=== PATIENT | female | born 1990 | race Caucasian/White ===

== ENCOUNTER 2020-08-27 12:36 | Emergency (ER) | payer BC, OTHER ==
[~2020-08-27] VITALS: Ht 162.6 cm; Wt 69.5 kg
--- NOTE | 2020-08-27 14:29 | RAD ---
VENOUS UPPER EXTREMITY RIGHT History: Reason: forearm swelling x 2 weeks hx of factor 5 Comparison: None. Procedure: Color flow Doppler, Doppler spectral analysis, and 2D images are obtained with and without compression in the jugular vein, subclavian vein, axillary vein, brachial vein, radial vein, ulnar vein, and basilic and cephalic veins. Findings: There is normal color flow, augmentation, and compressibility of all visualized vein segments. No evidence of deep venous thrombus is present. Cephalic vein difficult to follow due to small size. No evidence of superficial vein thrombosis. IMPRESSION: 1. No evidence of right upper extremity deep venous thrombosis. Electronically signed by: Rodriguez Henry DO (08/27/2020 2:26 PM) [id number]
[2020-08-27] MEDS ORDERED: NAPR-695 PO (15:02)
--- NOTE | 2020-08-27 15:02 | PHYS DOC ---
Past Medical History Past Medical History: Other Additional Past Medical Histor: ADHD, Facor V Past Surgical History: Other Additional Past Surgical Histo: knee surgery Smoking Status: Current Every Day Smoker Additional Information: 0.5/ppd Alcohol Use: Occasionally General Adult EDM: Chief Complaint: UPPER EXTREMITY PAIN HPI: HPI: Patient is a 29 year old female, accompanied by her sister, who presents to the emergency department with complaints of swelling and pain in her right wrist and forearm for the last 2-3 weeks. She denies any recent injury. She states that she was seen in urgent care 2 weeks ago and was given a shot of steroids and put in a brace, states that the symptoms continue. She denies any redness, warmth, or drainage from the affected extremity. She denies any known injury. Reports a history of factor V Leiden but denies any history of blood clots. She reports that her fingers have had a tingling sensation that has been intermittent and at times her right hand feels cold. She states that her pain has continued to increase even after taking the steroid shot that was given 2 weeks ago. She currently rates pain 9 out of 10 on the pain scale, she denies any alleviating factors, the pain is worse with movement. Review of Systems: Review of Systems: Constitutional: Denies fever or chills. [] Musculoskeletal: See HPI Integument: Denies rash, see HPI. [] Neurologic: Denies headache, see HPI Heart Score: Risk Factors: Risk Factors: DM, Current or recent (<one month) smoker, HTN, HLP, family history of CAD, obesity. Risk Scores: Score 0 - 3: 2.5% MACE over next 6 weeks - Discharge Home Score 4 - 6: 20.3% MACE over next 6 weeks - Admit for Clinical Observation Score 7 - 10: 72.7% MACE over next 6 weeks - Early Invasive Strategies Physical Exam: PE: Constitutional: Well developed, well nourished, no acute distress, non-toxic appearance. [] HENT: Normocephalic, atraumatic, bilateral external ears normal, nose normal. [] Eyes: PERRLA, EOMI, conjunctiva normal, no discharge. [] Neck: Normal range of motion, no stridor. [] Cardiovascular:Heart rate regular rhythm Lungs & Thorax: Respirations even and unlabored, no retractions, no respiratory distress Skin: Warm, dry, no erythema, no rash. [] Extremities: RUE: 1+ edema to R forearm, no erythema or warmth, no obvious deformtiy, no tenderness, no cyanosis, ROM intact Neurologic: Alert and oriented X 3, no focal deficits noted. [] Psychologic: Affect normal, judgement normal, mood normal. [] Current Patient Data: Vital Signs: Vital Signs Date Time Temp Pulse Resp B/P (MAP) Pulse Ox O2 Delivery O2 Flow Rate FiO2 08/27/20 12:45 98.1 61 19 126/77 (93) 99 Room Air 98.1 EKG: EKG: [] Radiology/Procedures: Radiology/Procedures: PROCEDURE: VENOUS UPPER EXTREMITY RIGHT VENOUS UPPER EXTREMITY RIGHT History: Reason: forearm swelling x 2 weeks hx of factor 5 Comparison: None. Procedure: Color flow Doppler, Doppler spectral analysis, and 2D images are obtained with and without compression in the jugular vein, subclavian vein, axillary vein, brachial vein, radial vein, ulnar vein, and basilic and cephalic veins. Findings: There is normal color flow, augmentation, and compressibility of all visualized vein segments. No evidence of deep venous thrombus is present. Cephalic vein difficult to follow due to small size. No evidence of superficial vein thrombosis. IMPRESSION: 1. No evidence of right upper extremity deep venous thrombosis. [] Course & Med Decision Making: Course & Med Decision Making Pertinent Labs and Imaging studies reviewed. (See chart for details) [] Dragon Disclaimer: Dragon Disclaimer: This electronic medical record was generated, in whole or in part, using a voice recognition dictation system. Departure Departure Impression: Primary Impression: Pain and swelling of right forearm Disposition: 01 HOME, SELF-CARE Condition: STABLE Referrals: VANIA MICHAUD MD (PCP) SHAE ULLOA II, MD Patient Instructions: Carpal Tunnel Syndrome, [id number] Additional Instructions: Fill the prescription and take as directed with food. Stop taking ibuprofen. Wear splint/compression sleeve as discussed. Follow up with Dr. Ulloa this week. Return to the ER if symptoms worsen. Scripts Naproxen (NAPROXEN) 375 Mg Tablet 1 TAB PO BID for 10 Days, #20 TAB 0 Refills Prov: YASMEEN CABRALES APRN 08/27/20 YASMEEN CABRALES APRN Aug 27, 2020 15:02
[2020-08-27 15:20] VITALS: BP 122/70
== END 2020-08-27 15:20 | disposition home or self-care (01) ==
LOC: ER 12:36
DX: M79.631 Pain in right forearm (principal); R60.0 Localized edema; R20.2 Paresthesia of skin; F17.200 Nicotine dependence, unspecified, uncomplicated; F90.9 Attention-deficit hyperactivity disorder, unspecified type; Z98.890 Other specified postprocedural states
CPT/HCPCS: 93971; 99284

== ENCOUNTER → 2020-11-21 | Outpatient (CLI) | payer OTHER ==
[~2020-11-21] MED LIST: AMIT10TA PO; DEXT10TA23 PO; GABA-585 PO; NAPR-695 PO
--- NOTE | 2020-11-21 09:21 | PDOC1 ---
INITIAL PAIN CONSULT DATE OF SERVICE: DOS: DATE: 11/21/20 TIME: 09:13 CHIEF COMPLAINT: Chief Complaint: Neck and right upper extremity pain HISTORY OF PRESENT ILLNESS: 30-year-old female presents history of pain base the neck and right upper extremity for several years but much worse over the past 6 months without any specific injury or accident that she is aware but getting worse over time with pain rating from the base of the neck into the right upper extremity posterior deltoid anterior deltoid biceps and triceps as well as forearm and into the hand with numbness and tingling in the fingers mostly the thumb and first finger patient reports is becoming more constant with time worse with activity reaching repetitive motions light weight lifting with the right arm also some numbness and radiation into the right upper extremity and hand as noted. Patient has been taking amitriptyline which does decrease the pain and helps her sleep the gabapentin was tried but was not helpful she has had no formal physical therapies but has had occupational therapy on the right upper extremity is doing stretching strength exercises that was outlined for her in that therapy. P atient reports it wakes her from sleep release 2-3 times at night specially she lays on her right side does not affect her bowel bladder control or ability to walk or function but she is still working and using upper extremities repetitively which exacerbates the pain. Patient had MRI scan of the cervical spine showing only some minimal narrowing at the C6-7 and C7-T1 without evidence of focal disc protrusion no signs of central canal or foraminal stenosis throughout. Patient rates her disability rating 0-10 10 being the worst as a 0 family responsibilities social activity sexual behavior self-care and life support activities of 5 with recreation and 3 with occupational activities. PAST MEDICAL HISTORY: PMH: Factor V disorder, cigarette smoking quit 6 months ago PREVIOUS SURGERIES: Past Surgical Hx: Right knee surgery 2009 CURRENT MEDICATIONS: Current Meds: Active Scripts Medications Dose Route/Sig Max Daily Dose Days Date Category Gabapentin (Gabapentin) 100 Mg Capsule 200 Mg PO BID 11/21/20 Reported Amitriptyline Hcl 10 Mg Tablet 1 Tab PO QHS 11/21/20 Reported Adderall 10 Mg Tablet (Dextroamphetamine/Amphetamine) 10 Mg Tablet 10 Mg PO HS 11/21/20 Reported Adderall 10 Mg Tablet (Dextroamphetamine/Amphetamine) 10 Mg Tablet 2 Tab PO DAILY MDD 1 Tablet(s) 5 11/21/20 Reported ALLERGIES; Allergies: Coded Allergies: Sulfa (Sulfonamide Antibiotics) (Verified Allergy, rash, 11/21/20) FAMILY HISTORY: Family Hx: Diabetes, heart disease, factor V Leiden SOCIAL HISTORY: Social Hx: Patient does not julio alcohol quit smoking 6 months ago is single lives with her boyfriend and her 10-year-old son lives locally in [facility] 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 Extraocular movements are intact and sy mmetrical. Oral cavity: Mucous membranes moist and pink. Dentition is intact. NECK: Shows anterior throat supple without palpable lymphadenopathy noted. Swallow reflex symmetrical. CHEST: Shows normal on inspection. Breath sounds are clear bilaterally, no rales rhonchi or wheezes. HEART: Shows S1, S2 clear. No murmurs auscultated. ABDOMEN: Soft, nontender, nondistended, obese. No palpable organomegaly is noted. No rebound or guarding demonstrated. BACK: Shows spine grossly in the midline. Normal-appearing cervical lordotic curvature. Cervical paraspinous muscles show symmetrical with inspection on palpation some moderate tenderness diffusely bilaterally but only diffusely without significant radiation. Patient is good rotation motion cervical spine with some moderate tenderness with extension and forward flexion most noticeably on the right side with forward flexion but performed fully. There is slightly increased thoracic kyphosis, some minor flattening of the lumbar lordotic curvature. EXTREMITIES: Upper extremities show deep tendon reflexes 2+ in the right hip and tricep tendons. Motor exam is 5 on a scale of 5 with right grocery checker, biceps and triceps flexion and 5/5 on the left. Peripheral pulses are 2+ radial. No peripheral edema is noted bilaterally. Lower extremities are warm and dry to touch, equal in color and appearance. SKIN: Shows warm and dry, good turgor. No edema. No sores, rashes or bruising throughout. IMPRESSION: Impression: 30-year-old female with 6-month history increasing pain in her right upper extremity in a radicular fashion MRI scan cervical spine as noted Current Plan: Options were discussed with the patient including conservative medical management physical therapies interventional techniques and she elects interventional techniques that she is currently doing occupational therapy stretching and strengthening with her right upper extremity. We discussed a cervical epidural steroid injection using description as well as anatomical models to describe the procedure. Patient will wait for preauthorization with her insurance provider and we will plan on a translaminar C6-7 level cervical epidural steroid injection at that time. In the meantime, patient will continue with stretching strength exercises on her own as currently. LILLY BRAUN MD Nov 21, 2020 09:21
== END | disposition home or self-care (01) ==
LOC: PNCL 08:05
PROVIDERS: ATTEND Anesthesiology
DX: M54.2 Cervicalgia (principal); M79.621 Pain in right upper arm; D68.51 Activated protein C resistance; Z87.891 Personal history of nicotine dependence; Z79.899 Other long term (current) drug therapy; Z98.890 Other specified postprocedural states; Z83.3 Family history of diabetes mellitus; Z82.49 Family history of ischemic heart disease and other diseases of the circulatory system; Z88.1 Allergy status to other antibiotic agents
CPT/HCPCS: G0463

== ENCOUNTER → 2020-12-05 | Outpatient (CLI) | payer OTHER ==
[~2020-12-05] MED LIST changes: +methylPREDNISolone ACETATE 40 MG/ML VIAL. ONE; +methylPREDNISolone ACETATE 80 MG/ML VIAL. ONE
--- NOTE | 2020-12-05 08:28 | PDOC ---
Progress Note - Pain Clinic Date of Service: DOS: DATE: 12/05/20 TIME: 08:24 Diagnosis: Dx: Cervical radiculopathy History or Present Illness: HPI: 30-year-old female returns for follow-up status post initial evaluation and preauthorization for cervical epidural steroid injection. Patient is obtained that now would like to proceed. Patient reports pain still base the neck and bilateral upper extremities with numbness and tingling in both the hands and fingers no new motor or sensory deficits but significant pain with radiation especially on the right side upper arm into arm and forearm. Patient reports no new changes or complaints. Physical Exam: VS: Blood pressure is 130/87 pulse 77 respirations 18 temperature 90.3 F height is 5 feet 4 inches weight is 178 pounds PE: PHYSICAL EXAMINATION: GENERAL: The patient is awake, alert, oriented, appropriate, very pleasant demeanor HEENT: Shows normocephalic, atraumatic. Extraocular movements are intact and symmetrical. Oral cavity: Mucous membranes moist and pink. NECK: Shows anterior throat supple without palpable lymphadenopathy noted. Swallow reflex symmetrical. CHEST: Shows normal on inspection. Breath sounds are clear bilaterally. HEART: Shows S1, S2 clear. No murmurs auscultated. ABDOMEN: Soft, nontender, nondistended. No palpable organomegaly is noted. BACK: Shows spine grossly in the midline. Normal-appearing cervical lordotic curvature. Cervical paraspinous muscles show symmetrical with inspection, on palpation some mild tenderness diffusely in the middle and lower distribution the paraspinous musculature and into the superior medial trapezius slightly more tender on the right than the left but without trigger points without atrophy hypertrophy or asymmetry. Patient shows good rotation motion of the cervical spine both laterally as well as full extension full forward flexion without significant increase in pain. There is slightly increased thoracic kyphosis, some minor flattening of the lumbar lordotic curvature. EXTREMITIES: Upper extremities show deep tendon reflexes 2+ in the biceps and triceps tendons. Motor exam is 5 on a scale of 5 with right strength, biceps and triceps flexion and 5/5 on the left. Peripheral pulses are 2+ radial. No peripheral edema is noted bilaterally. Upper extremities are warm and dry to touch, equal in color and appearance. SKIN: Shows warm and dry, good turgor. No edema. No sores, rashes or bruising throughout. Procedure: Procedure: Options were discussed with the patient. Patient chart reviewed as her current medication regimen updated current review of systems updated today as well. We will proceed with a cervical epidural steroid injection today. Risks were discussed including but not limited to: Bleeding, infection, possibility of epidural hematoma and subsequent neurological compromise, dural puncture, head aches, spinal cord and/or nerve damage, side effects of steroid medication, and poor results regarding pain control. Patient understands wished to proceed. Patient return to clinic in approximate 2 weeks for follow-up, was counseled as return appointment activity level and side effects to be aware of. Medication Injected: Med Injected: Procedure cervical epidural steroid injection at the C6-7 level, using local anesthetic under sterile prep and drape, without C-arm fluoroscopic guidance as patient is , under local anesthesia medications injected ; 120 mg Depo- Medrol + 5 mL normal saline; condition at discharge is stable patient tolerated procedure well. and had no complications Condition at Discharge: Condition at Discharge: Condition at discharge stable, patient tolerated procedure well had no complications. LILLY BRAUN MD Dec 05, 2020 08:28
== END | disposition home or self-care (01) ==
LOC: PNCL 07:53
PROVIDERS: ATTEND Anesthesiology
DX: M54.12 Radiculopathy, cervical region (principal); F17.210 Nicotine dependence, cigarettes, uncomplicated; Z79.899 Other long term (current) drug therapy; Z72.89 Other problems related to lifestyle; Z88.2 Allergy status to sulfonamides
CPT/HCPCS: 62321; J1030; J1040

== ENCOUNTER → 2020-12-19 | Outpatient (CLI) | payer OTHER ==
[~2020-12-19] MED LIST changes: -methylPREDNISolone ACETATE 40 MG/ML VIAL. ONE; -methylPREDNISolone ACETATE 80 MG/ML VIAL. ONE
--- NOTE | 2020-12-19 08:17 | PDOC ---
Progress Note - Pain Clinic Date of Service: DOS: DATE: 12/19/20 TIME: 08:12 Diagnosis: Dx: Cervical radiculopathy right upper extremity History or Present Illness: HPI: 30-year-old female returns to follow-up status post cervical epidural steroid injection x1. Patient reports 70 to 80% improvement in the neck and right upper extremity. Patient reports the pain returning in the arm but not in the neck the neck is almost pain-free at this time, but her arm still has some significant pain radiating into the anterior bicep deltoid forearm and into the thumb and first finger with some numbness and tingling. Patient ports is aching and sharp some dull pain in the neck but only rarely patient reports the pain in the arm is a 6 on scale 10 is worse over the past week for an average to its least is a 4 today. Patient reports increasing her activity with her right upper extremity to greater ease and comfort doing walking activities household activities work activities much greater ease and comfort driving the car with the greater ease with her right hand and weightbearing activities as well without any new loss of motor function. Patient reports no new motor or sensory deficits or other complaints. Physical Exam: VS: Blood pressure is 125/83 pulse 85 respirations 18 temperature 98.2 F height is 5 feet 4 inches weight 193 pounds PE: PHYSICAL EXAMINATION: GENERAL: The patient is awake, alert, oriented, appropriate, very pleasant demeanor HEENT: Shows normocephalic, atraumatic. Extraocular movements are intact and symmetrical. NECK: Shows anterior throat supple without palpable lymphadenopathy noted. Swallow reflex symmetrical. CHEST: Shows normal on inspection. Breath sounds are clear bilaterally. HEART: Shows S1, S2 clear. No murmurs auscultated. ABDOMEN: Soft, nontender, nondistended. No palpable organomegaly is noted. BACK: Shows spine grossly in the midline. Normal-appearing cervical lordotic curvature. Cervical paraspinous muscles show symmetrical on inspection, on palpation shows some moderate tenderness diffusely bilaterally diffusely without significant radiation. Patient is full rotation motion cervical spine both laterally as well as extension flexion without significant difficulty. There is slightly increased thoracic kyphosis, some minor flattening of the lumbar lordotic curvature. EXTREMITIES: Upper extremities show deep tendon reflexes 2+ in the biceps and triceps tendons. Motor exam is 5 on a scale of 5 with right rib strength, biceps and triceps flexion and 5/5 on the left. Peripheral pulses are 2+ radial. No peripheral edema is noted bilaterally. Upper extremities are warm and dry to touch, equal in color and appearance. SKIN: Shows warm and dry, good turgor. No edema. No sores, rashes or bruising throughout. Procedure: Procedure: Options discussed with the patient. Patient will chart reviews her current medication regimen updated current review of systems updated today as well. We will preauthorize patient for second cervical epidural steroid injection she did very well after the first injection but still some significant radicular pain in the right upper extremity in a C6-7 dermatomal distribution. Once authorization is obtained we will have patient return for translaminar approach C6-7 level cervical epidural steroid injection at that time. Medication Injected: Med Injected: None Condition at Discharge: Condition at Discharge: Condition at discharge is stable. LILLY BRAUN MD Dec 19, 2020 08:17
== END | disposition home or self-care (01) ==
LOC: PNCL 07:47
PROVIDERS: ATTEND Anesthesiology
DX: M54.12 Radiculopathy, cervical region (principal); M79.601 Pain in right arm; F17.210 Nicotine dependence, cigarettes, uncomplicated; Z79.899 Other long term (current) drug therapy; Z88.2 Allergy status to sulfonamides; Z72.89 Other problems related to lifestyle
CPT/HCPCS: 99212; G0463

== ENCOUNTER → 2021-01-02 | Outpatient (CLI) | payer OTHER ==
[~2021-01-02] MED LIST changes: +methylPREDNISolone ACETATE 40 MG/ML VIAL. ONE; +methylPREDNISolone ACETATE 80 MG/ML VIAL. ONE
--- NOTE | 2021-01-02 08:45 | PDOC ---
Progress Note - Pain Clinic Date of Service: DOS: DATE: 01/02/21 TIME: 08:42 Diagnosis: Dx: Cervical radiculopathy History or Present Illness: HPI: 30-year-old female returns follow-up status post cervical epidural steroid injection x1. Patient 70 to 80% improvement initially was waiting for preauthorization for second procedure. Patient reports pain base the neck and shoulders bilaterally right and left essentially equal. Patient reports no new motor or sensory deficits since last visit and the pain is still persistent worse with 3 repetitive activity lifting items reaching overhead with her hands also better with resting or sitting still generally does not awaken her from sleep at night. Patient reports the pain is a 6 on scale 10 is worse over the past week 5 on average 3 its least is a 5 today patient is comfortable with aching sharp base the neck as well some tingling in the upper extremities bilaterally. Physical Exam: VS: Blood pressure is 137/89 pulse 91 respirations 18 temperature 90.7 F height 5 feet 4 his weight 198 pounds PE: PHYSICAL EXAMINATION: GENERAL: The patient is awake, alert, oriented, appropriate, very pleasant demeanor HEENT: Shows normocephalic, atraumatic. Extraocular movements are intact and symmetrical. Oral cavity: Mucous membranes moist and pink. NECK: Shows anterior throat supple without palpable lymphadenopathy noted. Swallow reflex symmetrical. CHEST: Shows normal on inspection. Breath sounds are clear bilaterally, no rales rhonchi wheezes auscultated. HEART: Shows S1, S2 clear. No murmurs auscultated. ABDOMEN: Soft, nontender, nondistended, gravid. No palpable organomegaly is noted. No rebound or guarding demonstrated. BACK: Shows spine grossly in the midline. Normal-appearing cervical lordotic curvature. Cervical paraspinous muscles show symmetrical on inspection, on palpation shows some moderate tenderness diffusely in the middle and lower distribution paraspinous musculature bilaterally but only diffusely without significant radiation without atrophy hypertrophy no radiation into the upper extremities some minor tenderness with superior medial trapezius musculature bilaterally as well but without trigger points. Patient shows full rotation motion cervical spine both laterally as well as extension flexion without significant increase in pain. There is slightly increased thoracic kyphosis, some minor flattening of the lumbar lordotic curvature. EXTREMITIES: Upper extremities show deep tendon reflexes 2+ in the biceps and tr iceps tendons. 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 Peripheral pulses are 2+ radial. No peripheral edema is noted bilaterally. Upper extremities are warm and dry to touch, equal in color and appearance. SKIN: Shows warm and dry, good turgor. No edema. No sores, rashes or bruising throughout. Procedure: Procedure: Options were discussed with the patient. Patient will chart reviews her current medication regimen updated current review of systems updated today as well. We will proceed with a second in the series cervical epidural steroid injection today with fluoroscopic guidance. Risks were discussed including but not limited to: Bleeding, infection, possibility of epidural hematoma and subsequent neurological compromise, dural puncture, headaches, spinal cord and/or nerve da mage, side effects of steroid medication, and poor results regarding pain control. Patient understands and wished to proceed. Patient return to clinic in approximate 2 weeks for follow-up, was counseled as to return appointment activity level and side effects to be aware of. Medication Injected: Med Injected: Procedure cervical epidural steroid injection at the C6-7 level, using local anesthetic under sterile prep and drape using C-arm fluoroscopic guidance under local anesthesia medications injected ; 120 mg Depo-Medrol + 5 mL normal saline and 2 mL contrast; condition at discharge is stable patient tolerated procedure well. and had no complications Condition at Discharge: Condition at Discharge: Condition at discharge is stable, patient tolerated procedure well and had no complications. LILLY BRAUN MD Jan 02, 2021 08:45
--- NOTE | 2021-01-02 08:46 | PDOC4 ---
PROCEDURE Procedure Patient was consented for cervical epidural steroid injection. Risks were d iscussed including but not limited to: Bleeding, infection, possibility of epidural hematoma and subsequent neurological compromise, dural puncture, headaches, spinal cord and/or nerve damage, side effects of steroid medication, and poor results regarding pain control. Patient understands and wished to proceed. Procedure cervical epidural steroid injection at the C6-7 level, using local anesthetic under sterile prep and drape using C-arm fluoroscopic guidance under local anesthesia medications injected ; 120 mg Depo-Medrol + 5 mL normal saline and 2 mL contrast; condition at discharge is stable patient tolerated procedure well. and had no complications LILLY BRAUN MD Jan 02, 2021 08:46
== END | disposition home or self-care (01) ==
LOC: PNCL 08:10
PROVIDERS: ATTEND Anesthesiology
DX: M54.12 Radiculopathy, cervical region (principal); F17.210 Nicotine dependence, cigarettes, uncomplicated; Z79.82 Long term (current) use of aspirin; Z88.2 Allergy status to sulfonamides
CPT/HCPCS: 62321; J1030; J1040

== ENCOUNTER → 2021-08-24 | Outpatient (CLI) | payer OTHER ==
[~2021-08-24] MED LIST changes: -methylPREDNISolone ACETATE 40 MG/ML VIAL. ONE; -methylPREDNISolone ACETATE 80 MG/ML VIAL. ONE
--- NOTE | 2021-08-24 08:39 | PDOC ---
Progress Note - Pain Clinic Date of Service: DOS: DATE: 08/24/21 TIME: 08:35 Diagnosis: Dx: Cervical radiculopathy History or Present Illness: HPI: 30-year-old female returns for follow-up last seen December 2020 status post cervical epidural steroid injection x2. Patient was at the time now has given and reports the pain is still present in the neck and now in both upper extremities were originally placed just on the left side over the left side was more painful now both sides are very painful with numbness and tingling in the hands and forearms was making it difficult to do fine motor movements lifting things picking things up she is very cautious about lifting the baby and she is afraid of not feeling her arms and hands and dropping her patient reports this is not happened but she is quite worried. Patient reports is aching and sharp in the hands and arms constant base the neck and shoulders rated as a 9 on scale 10 is worse over the past week 8 on average 5 its least and is a 5 today patient reports no complete deficits but significant weakness with repetitive motions lifting weightbearing of the upper extremities. Patient which awakens her from sleep frequently but her baby does as well and she is unsure if it is from the pain orders from the new baby. Patient reports no bowel or bladder incontinence. Physical Exam: VS: Blood pressure is 131/84 pulse 73 respirations 16 temperature 98.2 F weight is 200 pounds PE: PHYSICAL EXAMINATION: GENERAL: The patient is awake, alert, oriented, appropriate, very pleasant demeanor HEENT: Shows normocephalic, atraumatic. Extraocular movements are intact and symmetrical. Oral cavity: Mucous membranes moist and pink. Dentition is intact. NECK: Shows anterior throat supple without palpable lymphadenopathy noted. Swallow reflex symmetrical. CHEST: Shows normal on inspection. Breath sounds are clear bilaterally, no rales rhonchi or wheeze. HEART: Shows S1, S2 clear. No murmurs auscultated. ABDOMEN: Soft, nontender, nondistended, obese. No palpable organomegaly is noted. BACK: Shows spine grossly in the midline. Normal-appearing cervical lordotic curvature. Cervical paraspinous muscles show symmetrical inspection, on palpation some moderate tenderness diffusely in the inferior aspect the cervical paraspinous muscles and the superior medial trapezius but without trigger points without atrophy hypertrophy. Patient shows full rotation motion cervical spine with laterally greater than 45 degrees closer to 90 degrees right and left lateral tilt full extension full forward flexion without significant difficulty. There is slightly increased thoracic kyphosis, some minor flattening of the lumbar lordotic curvature. Lumbar paraspinous muscles show symmetrical on inspection, on palpation shows some moderate tenderness diffusely throughout the upper, middle and lower distribution of the paraspinous muscles bilaterally and also into the lower thoracic paraspinous EXTREMITIES: Upper extremities show deep tendon reflexes 2+ in the tricep tendons. Motor exam is 5 on a scale of 5 with right rib, biceps and triceps flexion and 5/5 on the left. Peripheral pulses are 2+ radial. No peripheral edema is noted bilaterally. Shoulder shrug strong and intact without loss strength on resistance as is abduction of the shoulders 90 degrees without loss of consciousness bilaterally. Upper extremities are warm and dry to touch, equal in color and appearance. SKIN: Shows warm and dry, good turgor. No edema. No sores, rashes or bruising throughout. Procedure: Procedure: Discussed with patient patient chart was reviewed his medication regimen updated current view of systems updated today as well. We will preauthorize patient for cervical epidural steroid injection he did very well these in the past the pain returning now bilaterally instead of primarily on the left side and radicular fashion following a C6-7 dermatomal distribution. Patient continue with stretching strength exercises as she has been doing as well as Tylenol while she is breast-feeding. Also will add amitriptyline 10 mg nightly. Patient with instructions well side effects aware with the medication. Medication Injected: Med Injected: None Condition at Discharge: Condition at Discharge: Condition at discharge is stable. LILLY BRAUN MD Aug 24, 2021 08:39
== END | disposition home or self-care (01) ==
LOC: PNCL 07:57
PROVIDERS: ATTEND Anesthesiology
DX: M54.12 Radiculopathy, cervical region (principal); F17.210 Nicotine dependence, cigarettes, uncomplicated; Z79.899 Other long term (current) drug therapy; Z72.89 Other problems related to lifestyle; Z88.2 Allergy status to sulfonamides
CPT/HCPCS: 99212; G0463

== ENCOUNTER → 2021-09-13 | Outpatient (CLI) | payer OTHER ==
[~2021-09-13] MED LIST changes: +IOHEXOL 180 MG/ML 10 ML VIAL. ONE; +methylPREDNISolone ACETATE 40 MG/ML VIAL. ONE; +methylPREDNISolone ACETATE 80 MG/ML VIAL. ONE
--- NOTE | 2021-09-13 14:05 | PDOC ---
Progress Note - Pain Clinic Date of Service: DOS: DATE: 09/13/21 TIME: 14:01 Diagnosis: Dx: Cervical radiculopathy with cervical degenerative disc disease History or Present Illness: HPI: 31-year-old female returns for follow-up status post cervical epidural steroid injection x1 December 05, 2020 patient did very well with about 70 to 80% improvement overall with pain returning in the neck and left greater than right upper extremity patient reports he has not pain in the right upper extremity now which is becoming more noticeable with additionally was only on the left side. Patient reports pain is 8 on scale 10 is worse over the past week 7 on average 5 its least is a 7 today patient was aching and shooting can be constant with repetitive motions reaching overhead with her hands or lifting items patient has a 3-month-old at home now is lifting the child quite frequently this because the pain increased to moderate extent patient reports is better with resting propping her arms up and does not generally awaken her from sleep at night. Patient scribes pain is aching and shooting can be constant as noted. Patient reports no new motor deficits no bowel or bladder incontinence. Physical Exam: VS: Blood pressure is 136/94 pulse 83 respirations 18 temperature 98.2 F height 5 feet 4 inches weight 205 pounds. PE: PHYSICAL EXAMINATION: GENERAL: The patient is awake, alert, oriented, appropriate, very pleasant in demeanor HEENT: Shows normocephalic, atraumatic. Extraocular movements are intact and symmetrical. Oral cavity: Mucous membranes moist and pink. Dentition is intact. NECK: Shows anterior throat supple without palpable lymphadenopathy noted. Swallow reflex symmetrical. CHEST: Shows normal on inspection. Breath sounds are clear bilaterally, no rales or rhonchi. HEART: Shows S1, S2 clear. No murmurs auscultated. ABDOMEN: Soft, nontender, nondistended, obese. No palpable organomegaly is noted. BACK: Shows spine grossly in the midline. Normal-appearing cervical lordotic curvature. Cervical paraspinous muscles show symmetrical with inspection, on palpation some moderate tenderness diffusely more in the left than the right inferior aspect of the cervical paraspinous musculature into the trapezius muscle but without trigger points or radiation. Patient shows good rotation of motion the cervical spine both laterally as well extension flexion without significant difficulty. There is slightly increased thoracic kyphosis, some minor flattening of the lumbar lordotic curvature. EXTREMITIES: Upper extremities show deep tendon reflexes 2+ in the biceps and triceps tendons. Motor exam is 5 on a scale of 5 with right nail tech, biceps and triceps flexion and 5/5 on the left. Peripheral pulses are 1+ radial. No peripheral edema is noted bilaterally. Upper extremities are warm and dry to touch, equal in color and appearance. SKIN: Shows warm and dry, good turgor. No edema. No sores, rashes or bruising throughout. Procedure: Procedure: Options were discussed with patient. Patient's old chart reviews her current medication regimen updated current review of systems updated today as well. We will proceed with a cervical epidural steroid injection today with fluoroscopic guidance. Risks were discussed including but not limited to: Bleeding, infection, possibility of epidural hematoma and subsequent neurological compromise, dural puncture, headaches, spinal cord and/or nerve damage, side effects of steroid medication, and poor results regarding pain control. Patient understands and wished to proceed. Patient return to clinic in approximately 2 weeks for follow-up, was counseled as return appointment, activity level, and side effect to be aware of. Medication Injected: Med Injected: Procedure cervical epidural steroid injection at the C6-7 level, using local anesthetic under sterile prep and drape using C-arm fluoroscopic guidance under local anesthesia medications injected ;120 mg Depo-Medrol +5 mL normal saline and 2 mL contrast; condition at discharge is stable patient tolerated procedure well. and had no complications Condition at Discharge: Condition at Discharge: Condition at discharge is stable, patient already the procedure well and had no complications. LILLY BRAUN MD Sep 13, 2021 14:05
--- NOTE | 2021-09-13 14:05 | PDOC4 ---
Procedure Note: ICD 10 Code: ICD 10 Code: M54.12 M50.30 Procedure Note: Patient was consented for cervical epidural steroid injection with fluoroscopic guidance. Risks were discussed including but not limited to: Bleeding, infection, possibility of epidural hematoma and subsequent neurological compromise, dural puncture, headaches, spinal cord and/or nerve damage, side effects of steroid medication, and poor results regarding pain control. Patient understands and wished to proceed. Procedure cervical epidural steroid injection at the C6-7 level, using local anesthetic under sterile prep and drape using C-arm fluoroscopic guidance under local anesthesia medications injected ;120 mg Depo-Medrol +5 mL normal saline and 2 mL contrast; condition at discharge is stable patient tolerated procedure well. and had no complications LILLY BRAUN MD Sep 13, 2021 14:05
== END | disposition home or self-care (01) ==
LOC: PNCL 13:14
PROVIDERS: ATTEND Anesthesiology
DX: M50.10 Cervical disc disorder with radiculopathy, unspecified cervical region (principal); F17.210 Nicotine dependence, cigarettes, uncomplicated; Z79.899 Other long term (current) drug therapy; Z88.2 Allergy status to sulfonamides; Z72.89 Other problems related to lifestyle
CPT/HCPCS: 62321; J1030; J1040; Q9965

== ENCOUNTER → 2021-10-02 | Outpatient (CLI) | payer OTHER ==
[~2021-10-02] MED LIST changes: -IOHEXOL 180 MG/ML 10 ML VIAL. ONE; -methylPREDNISolone ACETATE 40 MG/ML VIAL. ONE; -methylPREDNISolone ACETATE 80 MG/ML VIAL. ONE
--- NOTE | 2021-10-02 08:16 | PDOC ---
Progress Note - Pain Clinic Date of Service: DOS: DATE: 10/02/21 TIME: 08:09 Diagnosis: Dx: Cervical radiculopathy with cervical degenerative disc disease History or Present Illness: HPI: 31-year-old female returns status post cervical epidural steroid injection x1. Patient reports about 75% improvement initially but now down to about 25% after about the first 2 weeks following the injection of September 13, 2021. Patient reports initially she is doing much better increased activity at home better use of her right upper extremity now the pain is returning and radiating significantly to the right arm anterior bicep in the anterior forearm lateral fo rearm as well and into the thumb and first finger patient reports is an 8 on scale 10 at its worst 7 on average 5 its least is a 5 today patient was aching sharp shooting most significantly and radiating the right arm with repetitive motions reaching weightbearing lifting and reaching forward with weight in the arm. Patient reports is difficult to twist by and fine motor movements are less precise as well with the right hand only. Patient reports no loss of motor function but significant fatigability the right arm especially with reaching over her head with her right hand in a repetitive motions or weight lifting. Physical Exam: VS: Blood pressure is 129/88 pulse 80 respirations 16 temperature is 98.3 F height is 5 foot 4 inches weight is 205 pounds. PE: PHYSICAL EXAMINATION: GENERAL: The patient is awake, alert, oriented, appropriate, very pleasant in demeanor HEENT: Shows normocephalic, atraumatic. Extraocular movements are intact and symmetrical. Patient wearing eyeglasses. Oral cavity: Mucous membranes moist and pink. Dentition is intact. NECK: Shows anterior throat supple without palpable lymphadenopathy noted. Swallow reflex is symmetrical. CHEST: Shows normal on inspection. Breath sounds are clear bilaterally, no rales rhonchi or wheezes auscultated. HEART: Shows S1, S2 clear. No murmurs auscultated. ABDOMEN: Soft, nontender, nondistended, obese. No palpable organomegaly is noted. BACK: Shows spine grossly in the midline. Normal-appearing cervical lordotic curvature. Cervical paraspinous muscles show symmetrical inspection, on palpation some moderate tenderness diffusely bilaterally diffusely without significant radiation. Patient shows full rotation motion cervical spine both laterally feels full extension full forward flexion with some minor pain in the right trapezius and shoulder with flexion and extension on the right side. There is slightly increased thoracic kyphosis, some minor flattening of the lumbar lordotic curvature. EXTREMITIES: Upper extremities show deep tendon reflexes 2+ in the biceps and triceps tendons. Motor exam is 5 on a scale of 5 with right mold bunch trimmer, biceps and triceps flexion and 5/5 on the left. Peripheral pulses are 2+ radial. No peripheral edema is noted bilaterally. Upper extremities are warm and dry to touch, equal in color and appearance. SKIN: Shows warm and dry, good turgor. No edema. No sores, rashes or bruising throughout. Procedure: Procedure: Options were discussed with patient. Patient chart was reviewed his current medication regimen updated current review of systems updated today as well. We will preauthorize patient for a second cervical epidural steroid injection she did very well after the first with radicular pain returning in the C6-7 dermatomal distribution on the right as previous. In the meantime, patient will continue with stretching strength exercises as well as [id number] analgesics. After preauthorization, patient will return for translaminar approach C6-7 level cervical epidural steroid injection with fluoroscopic guidance. Medication Injected: Med Injected: None Condition at Discharge: Condition at Discharge: Condition at discharge is stable. LILLY BRAUN MD Oct 02, 2021 08:16
== END | disposition home or self-care (01) ==
LOC: PNCL 07:26
PROVIDERS: ATTEND Anesthesiology
DX: M50.10 Cervical disc disorder with radiculopathy, unspecified cervical region (principal); F17.210 Nicotine dependence, cigarettes, uncomplicated; Z79.899 Other long term (current) drug therapy; Z72.89 Other problems related to lifestyle
CPT/HCPCS: 99212; G0463

== ENCOUNTER → 2021-10-17 | Outpatient (CLI) | payer OTHER ==
[~2021-10-17] MED LIST changes: +IOHEXOL 180 MG/ML 10 ML VIAL. ONE; +methylPREDNISolone ACETATE 40 MG/ML VIAL. ONE; +methylPREDNISolone ACETATE 80 MG/ML VIAL. ONE
--- NOTE | 2021-10-17 08:03 | PDOC ---
Progress Note - Pain Clinic Date of Service: DOS: DATE: 10/17/21 TIME: 07:59 Diagnosis: Dx: Cervical radiculopathy with cervical degenerative disc disease History or Present Illness: HPI: 31-year-old female returns for follow-up status post cervical epidural steroid injection x1 with approximate 75% improvement in the upper extremity pain patient reports some new pain now in the base of the neck and in the middle upper neck also in the superior aspect of the medial shoulders patient reports this is come on over the past week or so no specific injury or accident but she has been very active at home with the new baby and the arm pain is still about the same distribution in the anterior bicep and into the forearms and hands with some tingling and numbness but the pain in the back of the neck is now more of a sharp pain that is aching also causing some pain in the back of the head patient reports the pain in the arms is shooting and tingling as well rated as a 7 on scale 10 is worse over the past week 6 on average 6 its least is a 6 today. Patient reports no motor or sensory deficits generally better with resting laying down does not awaken her from sleep initially began to do much better with doing household activities work activities try with greater ease but now the pain is returning now again with some significant pain in the base of the neck and back of the head. Physical Exam: VS: Blood pressure is 116/78 pulse 66 respirations 16 temperature 98.0 F is 5 foot 4 inches weight is 201 pounds PE: PHYSICAL EXAMINATION: GENERAL: The patient is awake, alert, oriented, appropriate, very pleasant in d emeanor HEENT: Shows normocephalic, atraumatic. Extraocular movements are intact and symmetrical. Oral cavity: Mucous membranes moist and pink. Dentition is intact. NECK: Shows anterior throat supple without palpable lymphadenopathy noted. Swallow reflex symmetrical. CHEST: Shows normal on inspection. Breath sounds are clear bilaterally, no rales or rhonchi. HEART: Shows S1, S2 clear. No murmurs auscultated. ABDOMEN: Soft, nontender, nondistended, obese. No palpable organomegaly is noted. BACK: Shows spine grossly in the midline. Normal-appearing cervical lordotic curvature. There is slightly increased thoracic kyphosis, some minor flattening of the lumbar lordotic curvature. EXTREMITIES: Upper extremities show deep tendon reflexes 2+ in the patellar and tendo calcaneus tendons. Motor exam is 5 on a scale of 5 with right dorsiflexion, extension, quadriceps and hamstring flexion and 5/5 on the left. Peripheral pulses are 2+ posterior tibial. No peripheral edema is noted bilaterally. Upper extremities are warm and dry to touch, equal in color and appearance. SKIN: Shows warm and dry, good turgor. No edema. No sores, rashes or bruising throughout. Procedure: Procedure: Options discussed with patient. Patient chart reviewed his current medication regimen updated current review of systems updated today as well. We will proceed with a cervical epidural steroid injection today with fluoroscopic guidance. Risks were discussed including but not limited to: Bleeding, infection, possibility of epidural hematoma and subsequent neurological compromise, dural puncture, headaches, spinal cord and/or nerve damage, side effects of steroid medication, and poor results regarding pain control. Patient understands and wished to proceed. Return to the clinic in approximate 2 weeks for follow-up, was counseled as return appointment, activity level, and side effect to be aware of. Medication Injected: Med Injected: Procedure cervical epidural steroid injection at the C6-7 level, using local anesthetic under sterile prep and drape using C-arm fluoroscopic guidance under local anesthesia medications injected ;120 mg Depo-Medrol +5 mL normal saline and 2 mL contrast; condition at discharge is stable patient tolerated procedure well. and had no complications Condition at Discharge: Condition at Discharge: Condition at discharge stable, patient tolerated the procedure well and had no complications. LILLY BRAUN MD Oct 17, 2021 08:03
--- NOTE | 2021-10-17 08:04 | PDOC4 ---
Procedure Note: ICD 10 Code: ICD 10 Code: M54.12 M50.30 Procedure Note: Patient was consented for cervical epidural steroid injection with fluoroscopic guidance. Risks were discussed including but not limited to: Bleeding, infection, possibility of epidural hematoma and subsequent neurological compromise, dural puncture, headaches, spinal cord and/or nerve damage, side effects of steroid medication, and poor results regarding pain control. Patient understands and wished to proceed. Procedure cervical epidural steroid injection at the C6-7 level, using local anesthetic under sterile prep and drape using C-arm fluoroscopic guidance under local anesthesia medications injected ;120 mg Depo-Medrol +5 mL normal saline and 2 mL contrast; condition at discharge is stable patient tolerated procedure well. and had no complications LILLY BRAUN MD Oct 17, 2021 08:04
== END | disposition home or self-care (01) ==
LOC: PNCL 07:23
PROVIDERS: ATTEND Anesthesiology
DX: M50.10 Cervical disc disorder with radiculopathy, unspecified cervical region (principal); F17.210 Nicotine dependence, cigarettes, uncomplicated; Z79.899 Other long term (current) drug therapy; Z72.89 Other problems related to lifestyle; Z88.2 Allergy status to sulfonamides
CPT/HCPCS: 62321; J1030; J1040; Q9965

== ENCOUNTER → 2021-10-31 | Outpatient (CLI) | payer OTHER ==
[~2021-10-31] MED LIST changes: -IOHEXOL 180 MG/ML 10 ML VIAL. ONE; -methylPREDNISolone ACETATE 40 MG/ML VIAL. ONE; -methylPREDNISolone ACETATE 80 MG/ML VIAL. ONE
--- NOTE | 2021-10-31 08:11 | PDOC ---
Progress Note - Pain Clinic Date of Service: DOS: DATE: 10/31/21 TIME: 08:08 Diagnosis: Dx: Cervical radiculopathy with cervical degenerative disc disease History or Present Illness: HPI: 31-year-old female returns for follow-up status post cervical epidural injection x2. Patient with only about 20% improvement overall after second injection patient reports still significant pain in the base the neck and shoulders in the right upper extremity significantly radiating to the right arm and hand also some in the left arm and hand the forearm and hand right greater than left patient report is aching sharp in the back shooting and radiating in the upper extremities patient reports an 8 on scale 10 is worse over the past week 6 on average 5 its least is a 5 today patient reports no loss of motor function but significant fatigability the right arm and she is right-handed. Patient reports has had some swelling in the right wrist as well difficulty with some motor movements mainly with twisting motion with such as opening a jar or lid. Patient reports no loss of motor function but significant fatigability especially in the right arm and hand. Physical Exam: VS: Blood pressure is 121/85 pulse 75 respirations 18 temperature 97.9 F weight is 205 pounds PE: PHYSICAL EXAMINATION: GENERAL: The patient is awake, alert, oriented, appropriate, [facility] HEENT: Shows normocephalic, atraumatic. Extraocular movements are intact and symmetrical. Oral cavity: Mucous membranes moist and pink. Dentition is intact. NECK: Shows anterior throat supple without palpable lymphadenopathy noted. Swallow reflex symmetrical. CHEST: Shows normal on inspection. Breath sounds are clear bilaterally. HEART: Shows S1, S2 clear. No murmurs auscultated. ABDOMEN: Soft, nontender, nondistended. No palpable organomegaly is noted. BACK: Shows spine grossly in the midline. Normal-appearing cervical lordotic curvature. Cervical paraspinous muscles show symmetrical with inspection of palpation some moderate tenderness only the inferior aspect of the cervical paraspinous musculature bilaterally without specific radiation patient shows full rotation motion cervical spine with lateral as well as extension flexion without significant difficulty as well. There is slightly increased thoracic kyphosis, some minor flattening of the lumbar lordotic curvature. EXTREMITIES: Upper extremities show deep tendon reflexes 2+ in the biceps and triceps tendons. Motor exam is 5 on a scale of 5 with right snow fence erector, biceps and triceps flexion and 5/5 on the left. Peripheral pulses are 2+ radial. No peripheral edema is noted bilaterally. Patient's right wrist has an appearance of being larger than the left but without any specific edema and appears larger only. Upper extremities are warm and dry to touch, equal in color and appearance. SKIN: Shows warm and dry, good turgor. No edema. No sores, rashes or bruising throughout. Procedure: Procedure: Options discussed with patient. Patient chart was reviewed as her current medication regimen updated current review of systems updated today as well. We will hold any further injections at this time, recommend reevaluation for her EMG testing right upper extremity as she had test done over a year ago. Also will add new medication of ibuprofen 800 mg 3 times daily as well as Neurontin 300 mg 3 times daily. Patient was given instructions as well as side effects with each of the medications. Patient to follow-up in approximately 4 weeks as scheduled. Medication Injected: Med Injected: None Condition at Discharge: Condition at Discharge: Condition at discharge is stable. LILLY BRAUN MD Oct 31, 2021 08:11
== END | disposition home or self-care (01) ==
LOC: PNCL 07:29
PROVIDERS: ATTEND Anesthesiology
DX: M50.10 Cervical disc disorder with radiculopathy, unspecified cervical region (principal); F17.210 Nicotine dependence, cigarettes, uncomplicated; Z79.899 Other long term (current) drug therapy; Z72.89 Other problems related to lifestyle; Z88.2 Allergy status to sulfonamides
CPT/HCPCS: 99212; G0463